=== PATIENT | female | born 1980 | race Caucasian/White ===

== ENCOUNTER 2022-01-19 09:04 | Emergency (ER) | payer BC ==
[~2022-01-19] VITALS: Ht 154.9 cm; Wt 65.8 kg
--- NOTE | 2022-01-19 09:27 | NUR ---
Dr. Cho on bedside for MSE.
[2022-01-19] MEDS ORDERED: LORAZEPAM 0.5 MG TABLET ONE (09:44)
[2022-01-19] MEDS ORDERED: LORAZEPAM 0.5 MG TABLET PO ONE (09:45)
[2022-01-19 09:56] LABS: HEMATOCRIT 37.3 % (31.2-41.9); MEAN CORPUSCULAR HEMOGLOBIN 25.4 uug (24.7-32.8); PLATELET COUNT (AUTO) 240 K/uL (179-408)
[2022-01-19 10:06] LABS: CREATININE 0.8 mg/dL (0.6-1.3); POTASSIUM 3.4 mmol/L (3.5-5.1)
[2022-01-19 10:06] LABS: *BILIRUBIN,URIN NEGATIVE (NEGATIVE); *BLOOD, URINE 2+ (NEGATIVE); *CLARITY,URINE CLEAR (CLEAR); *COLOR,URINE YELLOW (YELLOW); *KETONES,URINE 3+ (NEGATIVE); LEUKOCYTE ESTERASE ,URINE NEGATIVE (NEGATIVE); NITRITE, URINE NEGATIVE (NEGATIVE); UGLUCOSE NEGATIVE (NEGATIVE)
[2022-01-19 10:08] LABS: *URINE HCG, QUAL NEG (NEGATIVE)
[2022-01-19] MEDS ORDERED: ONDANSETRON 4 MG/2 ML VIAL ONE (10:12)
[2022-01-19] MEDS ORDERED: KETOROLAC TROMETHAMINE 15 MG INJ ONE (10:12)
[2022-01-19] MEDS ORDERED: ONDANSETRON 4 MG/2 ML VIAL IV ONE (10:30)
[2022-01-19] MEDS ORDERED: KETOROLAC TROMETHAMINE 15 MG INJ IVP ONE (10:30)
[2022-01-19] MEDS ORDERED: SULF1TAB48 PO (10:49)
--- NOTE | 2022-01-19 10:49 | NUR ---
Patient reported relief from abdominal pain.
[2022-01-19 11:20] VITALS: BP 110/62
--- NOTE | 2022-01-19 11:20 | NUR ---
Patient discharged to home in stable condition. Written and verbal after care instructions given. Patient verbalizes understanding of instructions. Stressed follow up or return to ER for worsening s/s. Patient ambulated fr the ER with steady gait. All belongings with patient.
[2022-01-19 13:23] LABS: BACTERIA,URINE NONE SEEN /HPF (NONE SEEN); RBC,URINE 0-3 /HPF (0-3); SQUAMOUS EPITHELIAL CELL,UR FEW /HPF (NONE SEEN); WBC,URINE 0-3 /HPF (0-3)
== END 2022-01-19 11:21 | disposition home or self-care (01) ==
LOC: ER 09:04
DX: R10.2 Pelvic and perineal pain (principal); R35.0 Frequency of micturition; R39.15 Urgency of urination; F41.9 Anxiety disorder, unspecified
CPT/HCPCS: 99285; 96374; 76856; 96375; 80048; 81001; 84703; 85025; 87086; 36415; J1885; J2405; A4663